=== PATIENT | male | born 1990 | race Caucasian/White ===

== ENCOUNTER 2021-03-31 11:01 | Outpatient (REF) | payer MEDICAID, SELFPAY | END 2021-03-31 11:02 | disposition home or self-care (01) | LOC: HO.LAB 11:01 | PROVIDERS: Visit Provider Internal Medicine | DX: Z20.822 Contact with and (suspected) exposure to COVID-19 (principal) | CPT/HCPCS: C9803; U0003; U0005 ==

== ENCOUNTER 2023-10-26 11:12 | Emergency (ER) | payer OTHER, SELFPAY ==
[2023-10-26 11:37] VITALS: BP 125/86; PULSE 89; RESP 18; TEMP 36.4; O2SAT 98; BMI 29.8
--- NOTE | 2023-10-26 11:37 | ED_ITS ---
HPI - General Adult General Chief complaint: General Medical Stated complaint: sore throat, ear pain and lip blisters Time Seen by Provider: 10/26/23 11:49 Source: patient Mode of arrival: ambulatory Limitations: no limitations History of Present Illness ED Provider: Cecilia Tom PA-C HPI narrative: 33 year old presents to the ER due to 3 day history of sore throat, fever, headache, and right ear pain. States that it has been constant and not improving. Took tylenol with no relief. Denies cough, sputum production and nasal congestion. Reports having right flank/back pain that aches. Denies chest pain, dyspnea, palpitations, N/V/C/D, abdominal pain. Also reports having fever blisters around his lips. Denies any recent sick contacts or travel. Onset (ago): day(s) (3) Severity: mild Severity scale (1-10): 3 Quality: aching and dull Pain Consistency: constant Relieving factors: none Exacerbating factors: none Associated symptoms: denies other symptoms Treatments prior to arrival: none Related Data Previous Rx's ?Medication ?Instructions ?Recorded penicillin V potassium 500 mg 500 mg PO BID 10 days #20 tabs 10/26/23 tablet Allergies Allergy/AdvReac Type Severity Reaction Status Date / Time No Known Allergies Allergy Verified 10/26/23 11:37 Review of Systems Review of Systems: Yes all other systems are reviewed and are negative Constitutional: Constitutional: Reports as per HPI and Reports headache(s) Eyes: Eyes: Reports as per HPI and Denies loss of vision ENT: Reports as per HPI, Reports Normal hearing present, Denies dizziness, Reports otalgia (right ear), Denies facial pain, Reports headache(s), Reports mouth lesions, Denies nasal discharge, Denies post nasal drip, Denies sinus pain and Denies sinus pressure Cardiovascular: Cardiovascular: Reports as per HPI Respiratory: Respiratory: Reports as per HPI Gastrointestinal: Gastrointestinal: Reports no additional gastrointestinal complaints, Denies abdominal pain, Denies melena, Denies hematochezia, Denies change in bowel habits and Denies change in stool character Genitourinary: Genitourinary: Reports no additional male genitourinary complaints, Denies hematuria, Denies oliguria, Denies difficulty urinating, Denies dysuria, Denies urinary frequency, Denies urinary hesitancy, Denies urinary incontinence and Denies urinary urgency Musculoskeletal: Musculoskeletal: Reports no additional musculoskeletal complaints, Denies numbness and Denies tingling Neurologic: Reports Normal hearing present, Denies dizziness, Reports headache(s), Denies loss of vision, Denies numbness and Denies tingling Psychiatric: Psychiatric: Reports no additional psychiatric complaints Endocrine: Endocrine: Reports no additional endocrine complaints Hematologic/Lymphatic: Hematologic/Lymphatic: Reports no additional hematolog ic/lymphatic complaints Allergic/Immunologic: Allergic/Immunologic: Reports no additional allergic/immunologic complaints PMFSH Past Medical History Attestation statement: The following information was validated with the patient. Source: old records reviewed and nursing notes reviewed Social History Social History Advance Directives: No Do you have a plan to hurt others: No Plan Physical Exam ED Vital Signs: Vital Signs - 24 hr 10/26/23 11:37 10/26/23 14:45 Temperature 97.6 F 98.3 F Pulse Rate 89 88 Respiratory Rate 18 16 Blood Pressure 125/86 120/90 H Pulse Oximetry 98 99 Oxygen Delivery Method Room Air Room Air BMI result Body Mass Index 29.8 Const General: cooperative, no acute distress, alert and awake Nutritional Appearance: well nourished Orientation/consciousness: patient oriented x3 Limitations: no limitations HENMT Other: Pharynx and tonsil appears red and inflamed. No presence of exudates or petechiae on the soft palate. Head: Yes normal to inspection and Yes atraumatic Ears: hearing grossly normal bilaterally and external ears normal General nose exam: Normal external nose present, no nasal discharge noted and no epistaxis Face and sinus: Yes normal facial exam, No abrasion and No laceration Mouth: Normal oral and palatal mucosa present, no drooling and no muffled voice Eyes General: appearance normal, both eyes and all related structures Periorbital: periorbital findings normal Eyelids: Yes eyelids normal Conjunctivae: conjunctivae normal Pupils: Equal, round and reactive pupils present EOM: EOMs intact bilaterally Neck Neck: Yes normal visual inspection, Yes full ROM and Yes no lymphadenopathy Chest Chest palpation & inspection: normal inspection of the chest Resp Effort & Inspection: normal respiratory effort and able to speak in complete sentences Auscultation: clear to auscultation bilaterally Cardio Jugular venous distension: no JVD Rate: regular rate Rhythm: regular rhythm GI Inspection: Yes normal to inspection Neuro General: patient oriented x3 and moves all extremities Cranial nerves: Yes Equal, round and reactive pupils present and Yes Normal hearing present Cognition (Neuro): normal cognition Extrem General: Yes normal to inspection, Yes full ROM and Yes capillary refill normal Psych Appearance: grossly normal Mental Status: mental status grossly normal Affect: normal affect Attitude: cooperative Thought process: Normal thought process present Thought content: Normal thought content present Insight: Good insight present (Psych) Course Course Course Narrative: This is an RME: Additional HPI, ROS, PE not included below will be deferred to primary provider. RME assessment and note performed by: Destiny Grier PA-C This is a [id number], with no known medical problems, who presents to the ER with complaints of sore throat and right ear pain x 2 days. Reporting subjective fevers and night sweats with fever blisters. Patient has tonsillar erythema, 2+, uvula is midline. Plan: Strep testing, viral testing, further ER evaluation needed. Medical Decision Making Medical Decision Making MDM Narrative: 33 year old presents to the ER due to 3 day history of sore throat, fever, headache, and right ear pain. On physical exam, pharynx and tonsils appear erythematous. No presence of exudates or petechiae on the soft palate. Otherwise, unremarkable. Labs are negative for SARS-CoV, influenza A & B, and RSV. Positive for strep. Due these test results, history and PE will be treating patient with penicillin. Patient advised to follow up with PCP, and to return to the ER if symptoms continue or worsen Differential Diagnosis Differential Diagnoses: The differential diagnosis associated with the presentation includes influenza A/B, Covid-19, RSV, strep pharyngitis, viral pharyngitis, tonsillitis Admission/Observation Consideration of admission/observation: Escalation of care including admission/observation considered Patient would have been admitted to the hospital had his work up had any findings where hospital admission was appropriate and his clinical presentation warranted hospital admission. Lab Data [facility] Lab Attestation statement: I reviewed the patient's lab results. My interpretation of these results are in the MDM Rationale portion of this note. Labs: Lab Results 10/26/23 10/26/23 Range/Units 14:05 14:06 Influenza Type A (PCR) NEGATIVE (Negative) Influenza Type B (PCR) NEGATIVE (Negative) RSV RNA Qual (PCR) NEGATIVE (Negative) SARS-CoV-2 RNA (RT-PCR) NEGATIVE (Negative) S. pyogenes GrpA CHRIS Positive A (Negative) Prescription Management I considered prescription management with: Antibiotic (patient prescribed an antibiotic for strep pharyngitis) Discharge Plan Discharge Clinical Impression: Strep pharyngitis Patient Disposition: Home, Self-Care Instructions: Strep Throat (DC) Additional Instructions: Follow up with your primary care provider. Return to the emergency department immediately if your symptoms worsen or if you develop any dizziness, shortness of breath, difficulty breathing, chest pain, blurry vision, loss of vision, nausea, vomiting, abdominal pain, fever, chills, back pain, or any other complaints. Prescriptions: New penicillin V potassium 500 mg tablet 500 mg PO BID 10 Days Qty: 20 0RF Referrals: [facility] [place]] (Call to establish and follow up with a primary care provider. If you already have a primary care provider, please follow up with them.) [facility] [[facility] Group] [facility]] Interventions: ED Discharge Assessment Last Done: 10/26/23 14:45 Discharge Date/Time: 10/26/23 14:45 Print Language: Albanian
[2023-10-26 14:28] LABS: IDNOW Serial# 08D9AD1C; Strep A Nucleic Acid Positive (Negative)
[2023-10-26 14:45] VITALS: BP 120/90; PULSE 88; RESP 16; TEMP 36.8; O2SAT 99
[2023-10-26 14:49] LABS: Influenza A PCR NEGATIVE (Negative); Influenza B PCR NEGATIVE (Negative); Resp Syncy Virus RNA Qual PCR NEGATIVE (Negative); SARS COV2 PCR INHOUSE NEGATIVE (Negative)
== END 2023-10-26 14:45 | disposition home or self-care (01) ==
PROVIDERS: Physician Assistant Medical; Emergency Provider Emergency Medicine
DX: J02.0 Streptococcal pharyngitis (principal); R51.9 Headache, unspecified; R50.9 Fever, unspecified; H92.01 Otalgia, right ear; Z03.818 Encounter for observation for suspected exposure to other biological agents ruled out
CPT/HCPCS: 0241U; 87651; 99282; 99283